=== PATIENT | male | born 1955 | race Caucasian/White ===

== ENCOUNTER → 2017-12-09 | Outpatient (CLI) | payer OTHER ==
[~2017-12-09] MED LIST: ACETAMINOPHEN-1 EAC1 PO; AVALIDE 300-251 EACH PO; CARVEDILOL6.25 MG PO; CIPROFLOXIN HC2.5 M1 OPHTHALMIC; CRESTOR5 MG PO; GLUCOPHAGE1000 MG PO; HYDROCODON-ACE1 EAC7 PO; JANUMET 50-1,01 EACH PO; MECLIZINE 25 MG25 M1 PO; NAPROXEN375 MG PO; NASONEX17 GM NASAL; ONDANSETRON ODT4 MG PO; SYNTHROID50 MCG PO; TEKTURNA300 MG PO; TRILIPIX135 MG PO
== END ==
LOC: M.RAD 13:21
DX: M47.896 Other spondylosis, lumbar region (principal); M48.061 Spinal stenosis, lumbar region without neurogenic claudication; M16.0 Bilateral primary osteoarthritis of hip

== ENCOUNTER → 2017-12-15 | Outpatient (CLI) | payer OTHER | LOC: M.MRI 07:46 | DX: M47.896 Other spondylosis, lumbar region (principal); M48.061 Spinal stenosis, lumbar region without neurogenic claudication ==

== ENCOUNTER 2018-03-21 23:21 | Emergency (ER) | payer OTHER ==
[~2018-03-21] VITALS: Ht 180.3 cm; Wt 90.7 kg
[~2018-03-21 23:21] MED LIST changes: -ACETAMINOPHEN-1 EAC1 PO; -CIPROFLOXIN HC2.5 M1 OPHTHALMIC; -NASONEX17 GM NASAL
[2018-03-22] MEDS ORDERED: CIPROFLOXIN HC2.5 M1 OPHTHALMIC (00:10)
[2018-03-22] MEDS ORDERED: ACETAMINOPHEN-1 EAC1 PO (00:10)
[2018-03-22] MEDS ORDERED: NASONEX17 GM NASAL (00:10)
[2018-03-22 00:20] VITALS: BP 140/72
== END 2018-03-22 00:21 | disposition home or self-care (01) ==
LOC: M.ERS 23:21
DX: T15.02XA Foreign body in cornea, left eye, initial encounter (principal); I10 Essential (primary) hypertension; E78.5 Hyperlipidemia, unspecified; E11.9 Type 2 diabetes mellitus without complications; E03.9 Hypothyroidism, unspecified; Z90.89 Acquired absence of other organs; W22.8XXA Striking against or struck by other objects, initial encounter; Y93.89 Activity, other specified; Y92.89 Other specified places as the place of occurrence of the external cause; Y99.8 Other external cause status

== ENCOUNTER → 2018-05-27 | Outpatient (CLI) | payer OTHER ==
[~2018-05-27] MED LIST changes: +ACETAMINOPHEN-1 EAC1 PO; +CIPROFLOXIN HC2.5 M1 OPHTHALMIC; +NASONEX17 GM NASAL
== END ==
LOC: M.RAD 09:24
DX: T14.8XXA Other injury of unspecified body region, initial encounter (principal); M25.631 Stiffness of right wrist, not elsewhere classified; I10 Essential (primary) hypertension; E78.5 Hyperlipidemia, unspecified; E03.9 Hypothyroidism, unspecified; E11.9 Type 2 diabetes mellitus without complications; X58.XXXA Exposure to other specified factors, initial encounter; Y93.89 Activity, other specified; Y92.89 Other specified places as the place of occurrence of the external cause; Y99.8 Other external cause status

== ENCOUNTER → 2021-04-12 | Outpatient (CLI) | payer OTHER ==
--- NOTE | ~2021-04-12 | PF ---
[address] [address] PULMONARY FUNCTION REPORT Name: ARBEN LEY Room: [facility].#: [id number] Admission: 04/12/21 Attend Phys: Dominick Lindsay MD Discharge: Date of : 53 Report #: [id number] THIS REPORT FOR: cc: Kenyon Lockhart Vincent R. DO Pervez, Adeel MD ~ DATE OF STUDY: 04/12/2021 PULMONARY FUNCTION TEST The FEV1/FVC ratio is normal at 71% with an FVC normal at 86%. The FEV1 is also normal at 82%. The FEF 25-75 is normal at 71%. After the administration of a bronchodilator, there is no significant increase in any of these values. The patient's post-bronchodilator FEV1 is 2.92 liters. The flow volume loop is concave upwards. The total lung capacity is 91%. The residual volume is normal at 100%. The DLCO as adjusted for hemoglobin is mildly decreased to 70%. IMPRESSION: These are essentially normal pulmonary function tests with the exception that flow volume loop is mildly concave upwards and can indicate minimal underlying obstructive lung disease. The DLCO is also mildly decreased to 70%. By: [id number] Lindsay MD /nt
--- NOTE | 2021-04-22 23:44 | SLEEP ---
[address] [address] SLEEP STUDY REPORT Name: AVARBEN WEBER Room: [facility]#: [id number] Admission: 04/12/21 Attend Phys: Dominick Lindsay MD Discharge: Date of : 53 Report #: [id number] THIS REPORT FOR: cc: Kenyon Lockhart Vincent R. DO Pervez, Adeel MD ~ DATE OF STUDY: 04/12/2021 INTERPRETATION: Total duration of the study is 445 minutes. During this time duration, we recorded a large number of sleep-related respiratory events. These included 247 obstructive apneas, 14 central apneas, 3 mixed apneas and 43 hypopneas. Overall apnea-hypopnea index is 41.4. Body position data indicates the patient was observed in the supine position for 386 minutes, the rest of the time the patient was on the right side. Events did appear to be more common in the supine position. There also multiple desaturations recorded. Overall, the patient spent 5.4 minutes below an O2 saturation of 88%, 19.3 minutes were spent below an O2 saturation of 90%. Mean heart rate was 67. IMPRESSION: Severe obstructive sleep apnea with an apnea-hypopnea index of 41.4 with mild nocturnal hypoxemia as described above. RECOMMENDATIONS: Recommend positive airway pressure therapy. Considering that the patient has severe obstructive sleep apnea, I favor proceeding to a repeat sleep study in the sleep lab for positive airway pressure titration rather than the use of a CPAP auto titrated device. This entire sleep study was reviewed by board certified sleep physician. <ELECTRONICALLY SIGNED> By: Dominick Lindsay MD 04/22/21 [id number] Lindsay MD /nt
== END ==
LOC: M.PUL 04-05 13:26
PROVIDERS: ATTEND Internal Medicine Critical Care Medicine
DX: G47.33 Obstructive sleep apnea (adult) (pediatric) (principal); R09.02 Hypoxemia; J98.4 Other disorders of lung; G47.26 Circadian rhythm sleep disorder, shift work type; G47.19 Other hypersomnia; R05 Cough; Z72.821 Inadequate sleep hygiene